=== PATIENT | male | born 1945 | race Caucasian/White ===

== ENCOUNTER 2018-08-12 09:00 | Outpatient (CLI) | payer OTHER ==
[2018-08-10 10:18] VITALS: BP 126/74
[~2018-08-12] VITALS: Ht 175.3 cm; Wt 113.0 kg
[~2018-08-12 09:00] MED LIST: AMLO-150 PO; POTA20TA89 PO; SIMV20TA3 PO
[2018-08-12] MEDS ORDERED: LACTATED RINGERS 1,000 ML IV SCH (10:36)
[2018-08-12] MEDS ORDERED: FENTANYL PF 100 MCG/2ML ONE (10:48)
[2018-08-12] MEDS ORDERED: OXYcodone 5 MG/5 ML ORAL.SOL UDC PO PRN (11:00)
[2018-08-12] MEDS ORDERED: HALOPERIDOL 5 MG/ML IV PRN (11:00)
[2018-08-12] MEDS ORDERED: MEPERIDINE/PF 25MG/0.5ML IVPush PRN (11:00)
[2018-08-12] MEDS ORDERED: PROCHLORPERAZINE 5 MG/ML, 2ML IV PRN (11:00)
[2018-08-12] MEDS ORDERED: LABETALOL 5MG/ML, 20ML IV PRN (11:00)
[2018-08-12] MEDS ORDERED: hydrALAzine 20 MG/ML, 1ML IV PRN (11:00)
[2018-08-12] MEDS ORDERED: PROMETHAZINE 25 MG/ML, 1ML IV PRN (11:00)
[2018-08-12] MEDS ORDERED: HYDROmorphone 2 MG/ML, 1ML IVPush PRN (11:00)
[2018-08-12] MEDS ORDERED: FENTANYL PF 100 MCG/2ML IV PRN (11:00)
[2018-08-12] MEDS ORDERED: METOPROLOL 1 MG/ML, 5ML IV PRN (11:00)
[2018-08-12 11:11] LABS: BASOPHILS # (AUTO) 0.04 x10^3/uL (0-0.1); BASOPHILS % (AUTO) 1 % (0-1); EOSINOPHILS # (AUTO) 0.13 x10^3/uL (0-0.4); EOSINOPHILS % (AUTO) 2 % (1-7); LYMPHOCYTES # (AUTO) 1.57 x10^3/uL (1-3.4); LYMPHOCYTES % (AUTO) 25 % (22-44); MD NO; MEAN CORPUSCULAR HEMOGLOBIN 29.4 pg (27.5-34.5); MEAN CORPUSCULAR HGB CONC 34.1 g/dL (33.2-36.2); MEAN CORPUSCULAR VOLUME 86.1 fL (81-97); MEAN PLATELET VOLUME 8.3 fL (7.4-10.4); MONOCYTES # (AUTO) 0.56 x10^3/uL (0.2-0.8); MONOCYTES % (AUTO) 9 % (2-9); NEUTROPHILS # (AUTO) 4.02 x10^3/uL (1.8-6.8); NEUTROPHILS % (AUTO) 64 % (42-75); PLATELET COUNT 270 x10^3/uL (130-400); RED BLOOD COUNT 5.83 x10^6/uL (4.38-5.82); RED CELL DISTRIBUTION WIDTH 14.4 % (9.4-14.8)
[2018-08-12 11:17] LABS: ALANINE AMINOTRANSFERASE 44 U/L (12-78); ALBUMIN 3.9 g/dL (3.4-5.0); ANION GAP 6 mmol/L (5-15); CALCIUM 9.1 mg/dL (8.5-10.1); CHLORIDE 110 mmol/L (98-107)
[2018-08-12 11:19] LABS: ALKALINE PHOSPHATASE 67 U/L (45-117); CREATININE 0.98 mg/dL (0.7-1.3); TOTAL PROTEIN 7.7 g/dL (6.4-8.2)
== END 2018-08-12 23:59 | disposition home or self-care (01) ==
LOC: CLISVCS 09:00 → OUT 09:00 → EDSTATUS 11:30 → CLISVCS 23:59
PROVIDERS: ATTEND Urology
DX: N20.0 Calculus of kidney (principal); R94.31 Abnormal electrocardiogram [ECG] [EKG]
CPT/HCPCS: 36415; 80053; 85025; 93005; J3010; J7120